=== PATIENT | female | born 1960 | race Caucasian/White ===

== ENCOUNTER 2017-09-17 13:11 | Day surgery (SDC) | payer OTHER ==
[2017-09-17] MEDS ORDERED: FENTAnyl 50 MCG/ML VIAL (17:44)
[2017-09-17] MEDS ORDERED: MIDAZOLAM 1 MG/ML 2 ML INJ ×3 (17:44)
== END 2017-09-17 19:56 | disposition home or self-care (01) ==
LOC: GIL 13:11
DX: K29.30 Chronic superficial gastritis without bleeding (principal); K57.90 Diverticulosis of intestine, part unspecified, without perforation or abscess without bleeding; K64.8 Other hemorrhoids; I10 Essential (primary) hypertension; J45.909 Unspecified asthma, uncomplicated
CPT/HCPCS: 43239; 88305; 88312